=== PATIENT | male | born 1950 | race Caucasian/White ===

== ENCOUNTER → 2018-03-12 | Outpatient (CLI) | payer BC ==
--- NOTE | 2018-03-12 12:55 | Diagnostic Imaging Report ---
PROCEDURE: MRI lumbar spine. TECHNIQUE: Multiplanar, multisequence MRI of the lumbar spine was performed without contrast. Indication: Low back pain for 4 weeks, no known injury. Comparison: None. Discussion: Soft tissue edema is noted posteriorly which is typically due to prolonged recumbency. The conus medullaris is normal in position and morphology. The nerve roots of the cauda equina are unremarkable. The paraspinal soft tissues are otherwise unremarkable. Small cysts are noted within the bilateral kidneys. The vertebral bodies are normal in stature, alignment, and signal intensity. No fracture identified. Degenerative changes as detail below: L1-L2: Moderate degenerative disc disease and facet arthropathy. Small diffuse disc bulge with superimposed mild right paracentral disc protrusion. Mild central canal stenosis. Mild bilateral neuroforaminal narrowing. L2-L3: Moderate degenerative disc disease and advanced facet arthropathy. Small diffuse disc bulge. Mild/moderate central canal stenosis. Mild bilateral neuroforaminal narrowing. L3-L4: Advanced degenerative disc disease. Diffuse disc bulge with superimposed central disc protrusion. Advanced facet arthropathy and ligament flavum thickening. There is severe central canal stenosis. There is moderate left and moderate to severe right neural foraminal narrowing. L4-L5: Advanced degenerative disc disease. Small diffuse disc bulge. Advanced facet arthropathy. Mild central canal stenosis. There is severe right and moderate to severe left neural foraminal narrowing. L5-S1: Moderate degenerative disc disease. Small diffuse disc bulge with annular tear. Advanced facet arthropathy. Mild central canal stenosis. Moderate to severe right and moderate left neural foraminal stenosis. Impression: 1. Spondylitic changes of the lumbar spine as described with severe central canal stenosis at the L3-L4 level and multilevel neuroforaminal narrowing as detailed above. Additional annular tear noted at the L5-S1 level. Dictated by: Dictated on workstation # [id number]
== END ==
LOC: RAD 10:51
PROVIDERS: ATTEND Family Medicine
DX: M51.37 Other intervertebral disc degeneration, lumbosacral region (principal); M51.27 Other intervertebral disc displacement, lumbosacral region; M46.87 Other specified inflammatory spondylopathies, lumbosacral region; M48.07 Spinal stenosis, lumbosacral region; M99.73 Connective tissue and disc stenosis of intervertebral foramina of lumbar region; M47.816 Spondylosis without myelopathy or radiculopathy, lumbar region; N28.1 Cyst of kidney, acquired
CPT/HCPCS: 72148